=== PATIENT | male | born 1970 | race Hispanic/Latino ===

== ENCOUNTER 2016-11-10 21:07 | Inpatient (IN) | payer MEDICAID ==
--- NOTE | 2016-11-10 22:44 | ED PDOC ---
Arrival/HPI - General Chief Complaint: Medical Clearance Time Seen by Provider: 11/10/16 22:13 Historian: Patient - History of Present Illness Narrative History of Present Illness (Text): 11/10/16 22:41 46-year-old male presents today as a transfer for inpatient psychiatric admission. Patient with a history of PTSD with suicidal ideation. No chest pain or shortness of breath. Patient denies chest pain or shortness of breath. Patient states he needs help. Past Medical History - Provider Review Nursing Documentation Reviewed: Yes - Travel History Have you recently traveled outside US w/in the past 3 mons?: No - Infectious Disease Hx of Infectious Diseases: None - Psychiatric Hx Substance Use: (denies) Family/Social History - Physician Review Nursing Documentation Reviewed: Yes Family/Social History: Unknown Family HX Smoking Status: denies Hx Alcohol Use: (denies) Hx Substance Use: (denies) Allergies/Home Meds Allergies/Adverse Reactions: Allergies kit Adverse Reaction (Uncoded 11/10/16 21:17) SHORTNESS OF BREATH Home Medications: Home Meds Medication Instructions Recorded Confirmed No Known Home Med 11/10/16 11/10/16 Review of Systems - Review of Systems Constitutional: absent: Fatigue, Fevers Respiratory: absent: SOB, Cough Cardiovascular: absent: Chest Pain, Palpitations Gastrointestinal: absent: Abdominal Pain, Nausea, Vomiting Musculoskeletal: absent: Arthralgias Skin: absent: Rash Neurological: absent: Headache Psychiatric: Depression, Suicidal Ideation Physical Exam Vital Signs Reviewed: Yes Vital Signs Temp Pulse Resp BP Pulse Ox 11/10/16 21:27 98.2 F 72 18 124/70 100 11/10/16 21:11 98.2 F 72 18 124/70 99 Temperature: Afebrile Blood Pressure: Normal Pulse: Regular Respiratory Rate: Normal Appearance: Positive for: Well-Appearing, Non-Toxic, Comfortable Pain Distress: None Mental Status: Positive for: Alert and Oriented X 3 Finger Stick Blood Glucose: 169 - Systems Exam Head: Present: Atraumatic Neck: Present: Normal Range of Motion Respiratory/Chest: Present: Clear to Auscultation Cardiovascular: Present: Regular Rate and Rhythm Abdomen: No: Tenderness Upper Extremity: Present: Normal ROM Lower Extremity: Present: Normal ROM Skin: Present: Warm Psychiatric: Present: Alert, Oriented x 3 Medical Decision Making ED Course and Treatment: 11/10/16 22:42 Patient is a transfer to psychiatric floor nontoxic well-appearing no distress Vitals stable. Labs reviewed and within normal limits. Urine drug screen positive for benzodiazepine Impression: Suicidal ideation, history of PTSD, depression Admitted to behavioral health floor Disposition/Present on Arrival - Present on Arrival Any Indicators Present on Arrival: No History of DVT/PE: No History of Uncontrolled Diabetes: No Urinary Catheter: No History of Decub. Ulcer: No History Surgical Site Infection Following: None - Disposition Have Diagnosis and Disposition been Completed?: Yes Diagnosis: PTSD (post-traumatic stress disorder), Suicidal ideation Disposition: HOSPITALIZED Disposition Time: 22:44 Patient Plan: Admission Condition: FAIR Referrals: [facility] Andre Req, [Primary Care Provider] - Follow up with primary Forms: [employer] (Arabic)
[2016-11-11] MEDS ORDERED: Alum-Mag Hydrox-Simethicone Susp (30 mL) PO PRN (01:06)
[2016-11-11] MEDS ORDERED: Magnesium Hydroxide Susp 30 ml UD PO PRN (01:06)
--- NOTE | 2016-11-11 04:03 | PCM.BM ---
<Faina Badillo - Last Filed: 11/11/16 04:00> Treatment Plan Problems - Problems identified on initial assessmt Anxiety Date Initiated: 11/10/16 Time Initiated: 23:45 Assessment reference: NA Status: Active Suicidal Ideation Date Initiated: 11/10/16 Time Initiated: 23:45 Assessment reference: NA Status: Referred Agitated behavior Date Initiated: 11/10/16 Time Initiated: 23:45 Assessment reference: NA Status: Active Treatment assets and liabiliti Patient Assests: self-reliant, ADL independent Patient Liabilities: relationship conflicts, substance abuse - Milieu Protocol Maintain good personal hygiene: daily Encourage regular showers, daily Remind patient to perform daily oral care Conduct patient checks and document Observation sheet: Q15 minutes Maintain personal safety: every shift Educate patient to report safety concerns to staff, every shift Monitor environment for contraband/sharps Medication safety: Monitor for expected outcome, potential side effects: every shift, Assess barriers to learning: every shift, Assess readiness for medication education: every shift Discharge/Continuing Care - Education Needs Education Needs: Patient Medication, Patient Diagnosis/Disease Process, Patient Coping Skills, Patient Anger Management skills - Discharge Discharge Criteria: Free of Suicidal thoughts, Free of agitation <Fatmata Dinero - Last Filed: 11/11/16 12:29> Treatment assets and liabiliti Patient Assests: negotiates basic needs Discharge/Continuing Care - Education Needs Education Needs: Patient Medication, Patient Diagnosis/Disease Process, Patient Coping Skills, Patient Community resources <Johnna Jiang - Last Filed: 11/11/16 14:33> Family Contact Family involvement: Famliy/SO not involved - Goals for Treatment Patient goals for treatment: "To stop using drugs."
[2016-11-11 05:40] VITALS: BP 122/81; PULSE 78; RESP 18; TEMP 98.4; O2SAT 93
--- NOTE | 2016-11-11 07:49 | CP.PCM.HP ---
<Marian Gao - Last Filed: 11/11/16 13:50> History of Present Illness - History of Present Illness History of Present Illness: History and Physical for Dr. Horne CC: Suicidal Attempt/Heroin Overdose HPI: Pt is a 46 year old male with a known history of heroin abuse who was brought to the ED yesterday for reported suicidal attempt (per ED note). Patient reports to us that yesterday, he was using heroin, but took one dose more than usual. He states that he then became "out of it", and his girlfriend was worried and sent him to the hospital. Patient currently has no complaints. Patient reports a assisted history of heroin abuse, and 2 years ago, he attempted rehabilitation while he was living in [place]. He was started on Subutex, which did not work, and was subsequently changed to Suboxone which was effective for him. He states that since moving to [place] 2 years ago, he has not had follow up or further treatment for his heroin addiction, and he has returned to using. He currently is requesting a rehabilitation program and states that he never wants to use again. PT states he denies F/C/N/V. Patient admits to aches and pains since he's withdrawing. Medically, patient reports a history of diabetes. He states that it is for the most part, diet controlled, but when his blood sugar drops, he takes Novolog PRN. Patient checks his glucose levels three times a day and is usually in the 60s-80s when he has low blood surgar PMHX: DM Psychiatric history: PTSD, heroin abuse Meds: Prazosin HCL 2 mg PO, Remeron 15 mg PO, Xanax 0.5 mg PO BID All: bee stings, NKDA Social hx: - recreational drugs: heroin, cocaine, former cannibis smoker. PMD: Dr. Mora in [facility] Psych: Dr. Jung and Dr. Morris *at the [facility] Present on Admission - Present on Admission Any Indicators Present on Admission: No History of DVT/PE: No History of Uncontrolled Diabetes: No Urinary Catheter: No Decubitus Ulcer Present: No Past Patient History - Infectious Disease Hx of Infectious Diseases: None - Past Social History Smoking Status: denies - PSYCHIATRIC Hx Depression: Yes Hx Substance Use: Yes Meds Allergies/Adverse Reactions: Allergies Allergy/AdvReac Type Severity Reaction Status Date / Time bee Allergy Intermediate ANAPHYLAXIS Uncoded 11/11/16 01:26 Physical Exam - Constitutional Appears: Non-toxic, No Acute Distress - Head Exam Head Exam: NORMAL INSPECTION - Eye Exam Eye Exam: EOMI, Normal appearance - ENT Exam ENT Exam: Mucous Membranes Moist - Neck Exam Neck exam: Positive for: Full Rom. Negative for: Tenderness - Respiratory Exam Respiratory Exam: Chest Wall Tenderness, Clear to Auscultation Bilateral, NORMAL BREATHING PATTERN. absent: Accessory Muscle Use, Respiratory Distress - Cardiovascular Exam Cardiovascular Exam: Bradycardia, Tachycardia, REGULAR RHYTHM - GI/Abdominal Exam GI & Abdominal Exam: Soft. absent: Diminished Bowel Sounds, Tenderness - Extremities Exam Extremities exam: Positive for: full ROM, normal inspection. Negative for: joint swelling, pedal edema - Neurological Exam Neurological exam: Alert, Normal Gait, Oriented x3 - Psychiatric Exam Psychiatric exam: Flat Affect, Normal Affect, Normal Mood - Skin Skin Exam: Dry, Normal Color, Warm Results - Vital Signs Recent Vital Signs: Last Vital Signs Temp 98.4 F 11/10/16 23:45 Pulse 78 11/10/16 23:45 Resp 18 11/10/16 23:45 BP 122/81 11/10/16 23:45 Pulse Ox 93 L 11/10/16 23:45 - Labs Result Diagrams: 11/11/16 07:00 11/11/16 07:00 Labs: Laboratory Results - last 24 hr 11/11/16 01:01 POC Glucose (mg/dL) 136 H Assessment & Plan - Assessment and Plan (Free Text) Assessment: 46M with suicidal ideation, PMH heroin, cocaine and cannibis abuse, and PTSD Plan: Total Cholesterol: 165 T LDL: 85 HDL: 20 Atorvastatin 20 mg POQD Diet change: DASH diet instructions Patient is diabetic, LDL <70 is goal HDL goal is >60 for cardioprotective effects Patient started on Lipitor 20 mg POQD. Monitor for muscle cramps. Will increase as follows have patient f/u with PMG in 8 weeks to re-evaluate Lipid Panel. advise patient on low sodium, low fat diet. advised for Diabetic Diet referral patient placed on humalin sliding scale- low ACHS glucose accuchecks q6H Sign off. No other medical management. Marian Gao DO PGY1 - Date & Time Date: 11/11/16 Time: 13:15 <Jake Horne - Last Filed: 11/11/16 17:29> Results - Vital Signs Recent Vital Signs: Last Vital Signs Temp 98.4 F 11/10/16 23:45 Pulse 78 11/10/16 23:45 Resp 18 11/10/16 23:45 BP 122/81 11/10/16 23:45 Pulse Ox 93 L 11/10/16 23:45 - Labs Result Diagrams: 11/11/16 07:00 11/11/16 07:00 Labs: Laboratory Results - last 24 hr 11/11/16 11/11/16 11/11/16 01:01 07:00 07:00 WBC RBC Hgb Hct MCV MCH MCHC RDW Plt Count MPV Gran % Lymph % (Auto) Edwards % (Auto) Eos % (Auto) Baso % (Auto) Gran # Lymph # Edwards # Eos # Baso # Sodium 143 Potassium 4.2 Chloride 107 Carbon Dioxide 24 Anion Gap 16 BUN 15 Creatinine 0.7 Est GFR ( Amer) > 60 Est GFR (Non-Af Amer) > 60 POC Glucose (mg/dL) 136 H Random Glucose 93 Fasting Glucose 90 Calcium 8.7 Total Bilirubin 0.4 AST 29 ALT 41 Alkaline Phosphatase 42 Total Protein 6.7 Albumin 4.1 Globulin 2.6 Albumin/Globulin Ratio 1.6 Triglycerides 367 H Cholesterol 165 LDL Cholesterol Direct 86 HDL Cholesterol 20 L Free T4 0.80 TSH 3rd Generation 0.41 L RPR 11/11/16 11/11/16 11/11/16 07:00 07:00 16:26 WBC 7.8 RBC 4.59 Hgb 15.8 Hct 45.3 MCV 98.7 MCH 34.4 MCHC 34.9 RDW 12.9 Plt Count 219 MPV 9.7 Gran % 43.8 L Lymph % (Auto) 33.5 Edwards % (Auto) 10.1 H Eos % (Auto) 12.1 H Baso % (Auto) 0.5 Gran # 3.39 Lymph # 2.6 Edwards # 0.8 H Eos # 0.9 H Baso # 0.04 Sodium Potassium Chloride Carbon Dioxide Anion Gap BUN Creatinine Est GFR ( Amer) Est GFR (Non-Af Amer) POC Glucose (mg/dL) 113 H Random Glucose Fasting Glucose Calcium Total Bilirubin AST ALT Alkaline Phosphatase Total Protein Albumin Globulin Albumin/Globulin Ratio Triglycerides Cholesterol LDL Cholesterol Direct HDL Cholesterol Free T4 TSH 3rd Generation RPR Nonreactive Attending/Attestation - Attestation I have personally seen and examined this patient.: Yes I have fully participated in the care of the patient.: Yes I have reviewed all pertinent clinical information: Yes Notes (Text): 11/11/16 17:22 MEDICAL CONSULTATION 46 year old male with past medical history of PTSD and substance abuse who presented with suicidal ideation. Continue with management as per psychiatrist. He was counselled on risks of continued substance abuse. He is started on statin for dyslipidemia. Counselled on diet modifications. He states his diabetes is diet controlled. A1c level is ordered. Continue with insulin ss for now. TSH is mildly low with normal free T4. Recommended to repeat TFTs in 6-[address] Anthony for allowing us to participate in the care of this patient. Please re-consult as needed. Jake Horne MD Hospitalist.
[2016-11-11 08:06] LABS: GLUCOSE,FASTING 90 mg/dL (65-110); HDL CHOLESTEROL 20 mg/dL (29-60); LDL CHOLESTEROL 86 mg/dL (0-129)
[2016-11-11 09:06] LABS: ALB/GLOB RATIO 1.6 (1.1-1.8); ALBUMIN 4.1 g/dL (3.0-4.8); ALT/SGPT 41 U/L (7-56); AST/SGOT 29 U/L (15-59); BLOOD UREA NITROGEN 15 mg/dL (7-21); CALCIUM 8.7 mg/dL (8.4-10.5); GFR AFRICAN-AMERICAN > 60; GFR NON-AFRICAN AMERICAN > 60
[2016-11-11 09:22] LABS: FREE T4 0.8 ng/dL (0.78-2.19)
[2016-11-11 09:26] LABS: BASO # 0.04 K/mm3 (0.0-2.0); BASO % 0.5 % (0.0-3.0); EOS # 0.9 (0.0-0.7); EOS % 12.1 % (1.5-5.0); GRAN # 3.39 (1.4-6.5); GRAN % 43.8 % (50.0-68.0); HEMOGLOBIN 15.8 g/dL (14.0-18.0); LYMPH # 2.6 (1.2-3.4); LYMPH % 33.5 % (22.0-35.0); MEAN CELL VOLUME 98.7 fl (80.0-105.0); MEAN CORPUSCULAR HEMOGLOBIN 34.4 pg (25.0-35.0); MEAN CORPUSCULAR HGB CONC 34.9 g/dl (31.0-37.0); MEAN PLATELET VOLUME 9.7 fl (7.0-11.0); MONO # 0.8 (0.1-0.6); MONO % 10.1 % (1.0-6.0); PLATELET COUNT 219 10^3/uL (120.0-450.0); RBC 4.59 10^6/uL (3.5-6.1); RED CELL DISTRIBUTION WIDTH 12.9 % (11.5-14.5); WHITE BLOOD COUNT 7.8 10^3/ul (4.5-11.0)
[2016-11-11] MEDS ORDERED: Insulin Reg-LOW-Coverage SC SCH (16:30)
[2016-11-11] MEDS ORDERED: PRAZOSIN 2 MG PO SCH ×2 (22:00)
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
== END 2016-11-11 20:17 | disposition left against medical advice (07) | DRG 743 ==
LOC: ED 21:07 → ERH 22:30 → PSYC 11-11 00:36
PROVIDERS: ADMIT Psychiatry & Neurology Psychiatry; ATTEND Psychiatry & Neurology Psychiatry
DX: F11.10 Opioid abuse, uncomplicated (principal); F14.10 Cocaine abuse, uncomplicated; F12.10 Cannabis abuse, uncomplicated; F60.9 Personality disorder, unspecified; R45.851 Suicidal ideations; F63.9 Impulse disorder, unspecified; E11.9 Type 2 diabetes mellitus without complications; E78.5 Hyperlipidemia, unspecified